=== PATIENT | female | born 1980 | race American Indian/Alaskan Native ===

== ENCOUNTER 2017-03-20 08:36 | Emergency (ER) | payer SELFPAY ==
[2017-03-20 09:13] VITALS: BP 145/85
[2017-03-20] MEDS ORDERED: TORADOL IM ONE (10:54)
--- NOTE | 2017-03-20 10:59 | Emergency Department Report ---
HPI - General Chief Complaint: Back Pain/Injury Time Seen by Provider: 03/20/17 10:52 - HPI HPI: This is a 36 year-old female who presents to the emergency department with a one-week history of some upper back pain and a one-day history of some shoulder and neck pain. She has a history of scoliosis, chronic back pains and degenerative joint disease. She just moved here from [place] and therefore does not have a local primary care physician. She has not taken anything for her symptoms to presentation. She denies any problems with bowel or bladder, numbness or paresthesias or any neurological deficits. No problem with ambulation. She took a taxi in to be seen today. ED Past Medical Hx - Past Medical History Previous Medical History?: Yes Additional medical history: Scoliosis, Back pain, DJD - Surgical History Past Surgical History?: Yes Additional Surgical History: Back surgery @ age 6 - Social History Smoking Status: Current Every Day Smoker Substance Use Type: Alcohol, Non Opiate Pain - Medications Home Medications: Home Medications Medication Instructions Recorded Confirmed Last Taken Type Cyclobenzaprine HCl [Flexeril 5 MG 5 mg PO TID PRN #14 tab 03/20/17 Unknown Rx TAB] Ibuprofen [Motrin 800 MG tab] 800 mg PO Q8HR PRN #20 tablet 03/20/17 Unknown Rx ED Review of Systems ROS: Stated complaint: BACK PAIN Other details as noted in HPI Comment: All other systems reviewed and negative Constitutional: denies: chills, fever Eyes: denies: eye pain, eye discharge, vision change ENT: denies: ear pain, throat pain Respiratory: denies: cough, shortness of breath, wheezing Cardiovascular: denies: chest pain, palpitations Gastrointestinal: denies: abdominal pain, nausea, diarrhea Genitourinary: denies: urgency, dysuria, discharge Musculoskeletal: back pain, arthralgia, other (neck pain) Skin: denies: rash, lesions Neurological: denies: headache, weakness, numbness, paresthesias Physical Exam - Physical Exam Vital Signs: Vital Signs 03/20/17 09:10 Temperature 98.1 F Pulse Rate 81 Respiratory 20 Rate Blood Pressure 145/85 O2 Sat by Pulse 99 Oximetry Physical Exam: GENERAL: The patient is well-developed well-nourished. HENT: Normocephalic. Atraumatic. Patient has moist mucous membranes. EYES: Extraocular motions are intact. Pupils equal reactive to light bilaterally. NECK: Supple. Trachea is midline. Patient has both midline, paraspinal, and lateral neck discomfort but no step-off or deformity. There is some thought musculature that goes down to the shoulders and upper back consistent with a trapezius muscle spasm and hypertension. CHEST/LUNGS: Clear to auscultation. There is no respiratory distress noted. HEART/CARDIOVASCULAR: Regular. There is no tachycardia. There is no murmur. ABDOMEN: Abdomen is soft, nontender. Patient has normal bowel sounds. There is no abdominal distention. SKIN: Skin is warm and dry. NEURO: The patient is awake, alert, and oriented. The patient is cooperative. The patient has no focal neurologic deficits. The patient has normal speech and gait. MUSCULOSKELETAL: There is no tenderness or deformity. There is no limitation range of motion. There is no evidence of acute injury. Muscle strength 5 out of 5 in upper and lower extremities including EHL bilaterally. BACK: There is both upper midline and paraspinal tenderness to palpation and muscle tension. No step-off or deformity. No lumbar midline or paraspinal tenderness palpation, step-off or deformity. ED Course Vital Signs 03/20/17 09:10 Temperature 98.1 F Pulse Rate 81 Respiratory 20 Rate Blood Pressure 145/85 O2 Sat by Pulse 99 Oximetry ED Medical Decision Making - Medical Decision Making The patient has a history of chronic back pain secondary to scoliosis and degenerative joint disease. The neck pain is new since yesterday but she has reproducible tenderness palpation along the entire posterior and lateral sides of her neck going down into the shoulders and back that appears consistent with trapezius muscle spasm. She has no focal, motor or sensory deficits, cranial nerves are intact, and she has no complaints of any numbness or paresthesias. Vital signs stable. Since there is no trauma she also does not appear to require any type of imaging at this time. She was given a shot of Toradol and will be discharged home with some ibuprofen, muscle relaxer and a referral for the neurosurgeon for her back and neck pain. She will return to the ER with any worsening of her symptoms or any acute distress. - Differential Diagnosis muscle spasm, DJD, osteoarthritis, disc herniation Critical Care Time: No Critical care attestation.: If time is entered above; I have spent that time in minutes in the direct care of this critically ill patient, excluding procedure time. ED Disposition Clinical Impression: Neck pain, Trapezius muscle spasm Back pain Qualifiers: Back pain location: thoracic back pain Chronicity: unspecified Back pain laterality: bilateral Qualified Code(s): M54.6 - Pain in thoracic spine Disposition: DC-01 TO HOME OR SELFCARE Is pt being admited?: No Condition: Stable Instructions: Muscle Spasm (ED), Back Pain (ED) Additional Instructions: Please follow up with a primary care physician in the next few days. I have also given a referral for a local neurosurgeon, Dr. Larsen, to follow up regarding your neck and back pain. Return to the emergency Department with any worsening of your symptoms or any acute distress. You have been prescribed a medication that is sedating and therefore should not be taken prior to driving, working, and responsible for children and in no way should be mixed with alcohol of any quantity. Prescriptions: Cyclobenzaprine HCl [Flexeril 5 MG TAB] 5 mg PO TID PRN #14 tab PRN Reason: Spasms Ibuprofen [Motrin 800 MG tab] 800 mg PO Q8HR PRN #20 tablet PRN Reason: Pain Referrals: ALEENA LIVE MD [Primary Care Provider] - 3-5 Days JOSLYN LARSEN MD [Staff Physician] - 3-5 Days [facility] [Outside] - 3-5 Days Forms: Work/School Release Form(ED)
== END 2017-03-20 12:33 | disposition home or self-care (01) ==
LOC: ED 08:36
DX: M54.6 Pain in thoracic spine (principal); F17.200 Nicotine dependence, unspecified, uncomplicated
CPT/HCPCS: 96372; 99282; J1885